=== PATIENT | male | born 1985 | race American Indian/Alaskan Native ===

== ENCOUNTER 2018-03-14 10:48 | Emergency (ER) | payer BC ==
[2018-03-14] MEDS ORDERED: Sodium Chloride 0.9% 1,000 ML IV ONE (10:52)
[2018-03-14] MEDS ORDERED: Ondansetron 4 MG/2 ML SDV IVPUSH ONE (10:52)
--- NOTE | 2018-03-14 10:54 | EDM.PDOC ---
ED HPI GENERAL MEDICAL PROBLEM - General Chief Complaint: Chest Pain Stated Complaint: SOB/TINGLING LT ARM/CHEST PAIN Time Seen by Provider: 03/14/18 10:52 Source of Information: Reports: Patient History Limitations: Reports: No Limitations - History of Present Illness INITIAL COMMENTS - FREE TEXT/NARRATIVE: HISTORY AND PHYSICAL: History of present illness: Patient is a 32-year-old male who presents to the emergency room today with complaints of left sided facial numbness and tingling that goes down his left arm, which started approximately an hour [employer]. He states yesterday he had been drinking quite heavily, "more than normal". He denies any recent falls, traumas or injury. Denies any fever, chills, chest pain or shortness of breath. Denies any abdominal pain, nausea, vomiting, diarrhea. Medical history of anxiety. Review of systems: As per history of present illness and below otherwise all systems reviewed and negative. Past medical history: As per history of present illness and as reviewed below otherwise noncontributory. Surgical history: As per history of present illness and as reviewed below otherwise noncontributory. Social history: No reported history of drug or alcohol abuse. Family history: As per history of present illness and as reviewed below otherwise noncontributory. Physical exam: General: Well-nourished 32-year-old male. Alert and oriented. Nontoxic appearing and in no acute distress. HEENT: Atraumatic, normocephalic, pupils equal and reactive bilaterally, negative for conjunctival pallor or scleral icterus, mucous membranes moist, throat clear, neck supple, nontender, trachea midline. No drooling or trismus noted. No meningeal signs Lungs: Clear to auscultation, breath sounds equal bilaterally, chest nontender. Heart: S1S2, regular rate and rhythm without overt murmur Abdomen: Soft, nondistended, nontender. Negative for masses or hepatosplenomegaly. Negative for costovertebral tenderness. Pelvis: Stable nontender. Genitourinary: Deferred. Rectal: Deferred. Skin: Intact, warm, dry. No lesions or rashes noted. Extremities: Atraumatic, negative for cords or calf pain. Neurovascular unremarkable. Neuro: Awake, alert, oriented. Cranial nerves II through XII unremarkable. Cerebellum unremarkable. Motor and sensory unremarkable throughout. Exam nonfocal. Notes: Normal physical exam, normal neuro assessment. Vital signs are stable and have been reviewed by me. Chest x-ray shows no evidence of pneumonia or infiltrate. Negative Head CT. Labs are unremarkable. This information was shared with the patient. Supportive care measures and need for further follow up were reviewed and discussed. Patient voices understanding and denies any further questions. Diagnostics: CBC, CMP, UA, DRGU, EKG, Chest xray Therapeutics: IV fluids, Zofran, Solu-Medrol Prescription: None Impression: Parasethesia Plan: 1. Today's labs, EKG, chest x-ray and head CT are within normal limits. 2. Please limit your alcohol use. 3. Follow-up with your primary care provider in the next 1-2 days. Return to the ED as needed and as discussed. Definitive disposition and diagnosis as appropriate pending reevaluation and review of above. Onset: Today Duration: Hour(s): Location: Reports: Upper Extremity, Left Left Arm Pain Score (Numeric/FACES): 7 - Related Data Allergies Allergy/AdvReac Type Severity Reaction Status Date / Time Penicillins Allergy Cannot Verified 03/14/18 10:59 Remember Home Meds: Home Meds Sertraline HCl 100 mg PO DAILY 03/14/18 [History] Past Medical History - Past Health History Medical/Surgical History: Denies Medical/Surgical History ED ROS GENERAL - Review of Systems Review Of Systems: ROS reveals no pertinent complaints other than HPI. ED EXAM, GENERAL - Physical Exam Exam: See Below (See dictation) Course - Vital Signs Last Recorded V/S: Last Vital Signs Temp 98.1 F 03/14/18 10:51 Pulse 70 03/14/18 11:36 Resp 18 03/14/18 11:36 BP 123/68 03/14/18 11:36 Pulse Ox 98 03/14/18 11:36 - Orders/Labs/Meds Orders: Active Orders 24 hr Category Date Time Status EKG Documentation Completion [RC] STAT Care 03/14/18 10:52 Active Chest 1V Frontal [CR] Stat Exams 03/14/18 10:52 Taken Head wo Cont [CT] Stat Exams 03/14/18 11:30 Taken DRUG SCREEN, URINE [URCHEM] Stat Lab 03/14/18 11:29 Ordered UA W/MICROSCOPIC [URIN] Stat Lab 03/14/18 11:29 Ordered Labs: Laboratory Tests 03/14/18 03/14/18 03/14/18 Range/Units 10:50 10:50 11:29 WBC 9.55 (4.0-11.0) K/uL RBC 4.78 (4.50-5.90) M/uL Hgb 14.8 (13.0-17.0) g/dL Hct 42.2 (38.0-50.0) % MCV 88.3 (80.0-98.0) fL MCH 31.0 (27.0-32.0) pg MCHC 35.1 (31.0-37.0) g/dL RDW Std Deviation 45.5 (28.0-62.0) fl RDW Coeff of Paul 14 (11.0-15.0) % Plt Count 245 (150-400) K/uL MPV 10.00 (7.40-12.00) fL Neut % (Auto) 62.3 (48.0-80.0) % Lymph % (Auto) 25.2 (16.0-40.0) % [place] % (Auto) 10.2 (0.0-15.0) % Eos % (Auto) 1.8 (0.0-7.0) % Baso % (Auto) 0.5 (0.0-1.5) % Neut # (Auto) 6.0 H (1.4-5.7) K/uL Lymph # (Auto) 2.4 (0.6-2.4) K/uL [place] # (Auto) 1.0 H (0.0-0.8) K/uL Eos # (Auto) 0.2 (0.0-0.7) K/uL Baso # (Auto) 0.1 (0.0-0.1) K/uL Nucleated RBC % 0.0 /100WBC Nucleated RBCs # 0 K/uL Sodium 142 (136-148) mmol/L Potassium 3.9 (3.5-5.1) mmol/L Chloride 104 (98-107) mmol/L Carbon Dioxide 27.8 (21.0-32.0) mmol/L BUN 12 (7.0-18.0) mg/dL Creatinine 1.0 (0.8-1.3) mg/dL Est Cr Clr Drug Dosing 105.07 mL/min Estimated GFR (MDRD) > 60.0 ml/min Glucose 111 H (74-106) mg/dL Calcium 8.9 (8.5-10.1) mg/dL Total Bilirubin 0.4 (0.2-1.0) mg/dL AST 22 (15-37) IU/L ALT 35 (14-63) IU/L Alkaline Phosphatase 48 (46-116) U/L Total Protein 8.2 (6.4-8.2) g/dL Albumin 4.8 (3.4-5.0) g/dL Globulin 3.4 (2.0-3.5) g/dL Albumin/Globulin Ratio 1.4 (1.3-2.8) Urine Color YELLOW Urine Appearance CLEAR Urine pH 5.5 (5.0-8.0) Ur Specific [place] >= 1.030 (1.001-1.035) Urine Protein TRACE (NEGATIVE) mg/dL Urine Glucose (UA) NEGATIVE (NEGATIVE) mg/dL Urine Ketones NEGATIVE (NEGATIVE) mg/dL Urine Occult Blood NEGATIVE (NEGATIVE) Urine Nitrite NEGATIVE (NEGATIVE) Urine Bilirubin NEGATIVE (NEGATIVE) Urine Urobilinogen 0.2 (<2.0) EU/dL Ur Leukocyte Esterase NEGATIVE (NEGATIVE) Urine RBC 0-1 (0-2/HPF) Urine WBC 0-1 (0-5/HPF) Ur Epithelial Cells RARE (NONE-FEW) Urine Bacteria RARE (NEGATIVE) Urine Opiates Screen (NEGATIVE) Ur Oxycodone Screen (NEGATIVE) Urine Methadone Screen (NEGATIVE) Ur Barbiturates Screen (NEGATIVE) Ur Phencyclidine Scrn (NEGATIVE) Ur Amphetamine Screen (NEGATIVE) U Methamphetamines Scrn (NEGATIVE) U Benzodiazepines Scrn (NEGATIVE) U Cocaine Metab Screen (NEGATIVE) U Marijuana (THC) Screen (NEGATIVE) 03/14/18 Range/Units 11:29 WBC (4.0-11.0) K/uL RBC (4.50-5.90) M/uL Hgb (13.0-17.0) g/dL Hct (38.0-50.0) % MCV (80.0-98.0) fL MCH (27.0-32.0) pg MCHC (31.0-37.0) g/dL RDW Std Deviation (28.0-62.0) fl RDW Coeff of Paul (11.0-15.0) % Plt Count (150-400) K/uL MPV (7.40-12.00) fL Neut % (Auto) (48.0-80.0) % Lymph % (Auto) (16.0-40.0) % [place] % (Auto) (0.0-15.0) % Eos % (Auto) (0.0-7.0) % Baso % (Auto) (0.0-1.5) % Neut # (Auto) (1.4-5.7) K/uL Lymph # (Auto) (0.6-2.4) K/uL [place] # (Auto) (0.0-0.8) K/uL Eos # (Auto) (0.0-0.7) K/uL Baso # (Auto) (0.0-0.1) K/uL Nucleated RBC % /100WBC Nucleated RBCs # K/uL Sodium (136-148) mmol/L Potassium (3.5-5.1) mmol/L Chloride (98-107) mmol/L Carbon Dioxide (21.0-32.0) mmol/L BUN (7.0-18.0) mg/dL Creatinine (0.8-1.3) mg/dL Est Cr Clr Drug Dosing mL/min Estimated GFR (MDRD) ml/min Glucose (74-106) mg/dL Calcium (8.5-10.1) mg/dL Total Bilirubin (0.2-1.0) mg/dL AST (15-37) IU/L ALT (14-63) IU/L Alkaline Phosphatase (46-116) U/L Total Protein (6.4-8.2) g/dL Albumin (3.4-5.0) g/dL Globulin (2.0-3.5) g/dL Albumin/Globulin Ratio (1.3-2.8) Urine Color Urine Appearance Urine pH (5.0-8.0) Ur Specific [place] (1.001-1.035) Urine Protein (NEGATIVE) mg/dL Urine Glucose (UA) (NEGATIVE) mg/dL Urine Ketones (NEGATIVE) mg/dL Urine Occult Blood (NEGATIVE) Urine Nitrite (NEGATIVE) Urine Bilirubin (NEGATIVE) Urine Urobilinogen (<2.0) EU/dL Ur Leukocyte Esterase (NEGATIVE) Urine RBC (0-2/HPF) Urine WBC (0-5/HPF) Ur Epithelial Cells (NONE-FEW) Urine Bacteria (NEGATIVE) Urine Opiates Screen NEGATIVE (NEGATIVE) Ur Oxycodone Screen NEGATIVE (NEGATIVE) Urine Methadone Screen NEGATIVE (NEGATIVE) Ur Barbiturates Screen NEGATIVE (NEGATIVE) Ur Phencyclidine Scrn NEGATIVE (NEGATIVE) Ur Amphetamine Screen NEGATIVE (NEGATIVE) U Methamphetamines Scrn NEGATIVE (NEGATIVE) U Benzodiazepines Scrn NEGATIVE (NEGATIVE) U Cocaine Metab Screen NEGATIVE (NEGATIVE) U Marijuana (THC) Screen NEGATIVE (NEGATIVE) Meds: Medications Discontinued Medications Generic Name Dose Route Start Last Admin Trade Name Freq PRN Reason Stop Dose Admin Sodium Chloride 1,000 mls @ 999 mls/hr 03/14/18 10:52 03/14/18 11:11 Normal Saline IV 03/14/18 11:52 999 mls/hr STAT ONE Administration Methylprednisolone Sodium Succinate 125 mg 03/14/18 11:31 03/14/18 11:41 Solu-Medrol IVPUSH 03/14/18 11:32 125 mg ONETIME ONE Administration Ondansetron HCl 4 mg 03/14/18 10:52 03/14/18 11:11 Zofran IVPUSH 03/14/18 10:53 4 mg ONETIME ONE Administration Departure - Departure Time of Disposition: 12:12 Disposition: Home, Self-Care 01 Clinical Impression: Paresthesia of arm Instructions: Paresthesia, [id number] Referrals: PCP,Not In Area [Primary Care Provider] - Forms: ED Department Discharge Additional Instructions: The following information is given to patients seen in the emergency department who are being discharged to home. This information is to outline your options for follow-up care. We provide all patients seen in our emergency department with a follow-up referral. The need for follow-up, as well as the timing and circumstances, are variable depending upon the specifics of your emergency department visit. If you don't have a primary care physician on staff, we will provide you with a referral. We always advise you to contact your personal physician following an emergency department visit to inform them of the circumstance of the visit and for follow-up with them and/or the need for any referrals to a consulting specialist. The emergency department will also refer you to a specialist when appropriate. This referral assures that you have the opportunity for follow-up care with a specialist. All of these measure are taken in an effort to provide you with optimal care, which includes your follow-up. Under all circumstances we always encourage you to contact your private physician who remains a resource for coordinating your care. When calling for follow-up care, please make the office aware that this follow-up is from your recent emergency room visit. If for any reason you are refused follow-up, please contact the [facility] Emergency Department at and asked to speak to the emergency department charge nurse. [facility] [address] [place] [id number] 1. Today's labs, EKG, chest x-ray and head CT are within normal limits. 2. Please limit your alcohol use. 3. Follow-up with your primary care provider in the next 1-2 days. Return to the ED as needed and as discussed. - My Orders Last 24 Hours: My Active Orders 03/14/18 10:52 EKG Documentation Completion [RC] STAT Chest 1V Frontal [CR] Stat 03/14/18 11:29 DRUG SCREEN, URINE [URCHEM] Stat UA W/MICROSCOPIC [URIN] Stat 03/14/18 11:30 Head wo Cont [CT] Stat - Assessment/Plan Last 24 Hours: My Active Orders 03/14/18 10:52 EKG Documentation Completion [RC] STAT Chest 1V Frontal [CR] Stat 03/14/18 11:29 DRUG SCREEN, URINE [URCHEM] Stat UA W/MICROSCOPIC [URIN] Stat 03/14/18 11:30 Head wo Cont [CT] Stat
[2018-03-14 11:22] LABS: CHLORIDE,CL 104 mmol/L (98-107); SODIUM,NA 142 mmol/L (136-148)
[2018-03-14] MEDS ORDERED: methylPREDNISolone Sodium Succinate 125 MG/2 ML SDV IVPUSH ONE (11:31)
--- NOTE | 2018-03-15 09:34 | CR ---
EXAM DATE: 03/14/18 PATIENT'S AGE: 32 Patient: CORY MATHEWS Facility: [place], [place] Site . Site : 1985 Study: XRay Chest [id number]/[id number] 11:18:14 AM Ordering Physician: Doctor Frazier Final Report: INDICATION: Chest and left arm pain. TECHNIQUE: AP portable upright chest. FINDINGS: Clear lungs. Normal heart size and pulmonary vascularity. Normal included skeletal thorax. IMPRESSION: Negative portable chest. Dictated by Magno Bains MD @ Mar 14 2018 11:21AM (Electronic Signature) Report Signed by Proxy. JESSENIA
--- NOTE | 2018-03-15 09:34 | CT ---
EXAM DATE: 03/14/18 PATIENT'S AGE: 32 Patient: CORY MATHEWS Facility: [place], [place] Site . Site : 1985 Study: CT Head [id number] 12:03:16 PM Ordering Physician: Doctor Frazier Final Report: INDICATION: Dizziness. Left arm and facial tingling. TECHNIQUE: Noncontrast head CT. FINDINGS: There is no evidence for acute intracranial hemorrhage or hydrocephalus. There is no evidence for mass effect or shift of midline structures. No evidence for ischemic changes or infarction. The calvarium and skull base are normal. The included paranasal sinuses and mastoid air cells are clear. IMPRESSION: Negative noncontrast head CT. Please note that all CT scans at this facility use dose modulation, iterative reconstruction, and/or weight-based dosing when appropriate to reduce radiation dose to as low as reasonably achievable. Dictated by Magno Bains MD @ Mar 14 2018 12:08PM (Electronic Signature) Report Signed by Proxy. JESSENIA
== END 2018-03-14 12:23 | disposition home or self-care (01) ==
LOC: MW.ED 10:48
DX: R20.2 Paresthesia of skin (principal); Z88.0 Allergy status to penicillin
CPT/HCPCS: 70450; 71045; 80053; 80305; 81001; 85025; 93005; 96361; 96374; 96375; 99285; J2405; J2930; J7040; 99284

== ENCOUNTER 2019-10-31 06:44 | Emergency (ER) | payer BC, OTHER ==
--- NOTE | 2019-10-31 07:32 | EDM.PDOCBH ---
ED HPI GENERAL MEDICAL PROBLEM - General Chief Complaint: Behavioral/Psych Stated Complaint: ANXIETY Time Seen by Provider: 10/31/19 07:17 Source of Information: Reports: Patient, RN Notes Reviewed History Limitations: Reports: No Limitations - History of Present Illness INITIAL COMMENTS - FREE TEXT/NARRATIVE: This 33-year-old male presents to the emergency room for anxiety. Patient only concern if his vitals were stable. Patient did not want to talk to the physician about any other history and stated if his vitals were fine he would leave. Patient then left the emergency room without any exam or any other discussion. no pain Pain Score (Numeric/FACES): 0 - Related Data Allergies Allergy/AdvReac Type Severity Reaction Status Date / Time Penicillins Allergy Cannot Verified 10/31/19 06:58 Remember Home Meds: Home Meds Sertraline HCl 100 mg PO DAILY 03/14/18 [History] Past Medical History - Past Health History Medical/Surgical History: Denies Medical/Surgical History Psychiatric History: Reports: Anxiety, Depression, Mood Swings - Infectious Disease History Infectious Disease History: Reports: Chicken Pox - Past Surgical History Musculoskeletal Surgical History: Reports: Other (See Below) Other Musculoskeletal Surgeries/Procedures:: surgery on broken wrist Social & Family History - Family History Family Medical History: Noncontributory - Tobacco Use Smoking Status *Q: Current Every Day Smoker Years of Tobacco use: 15 Packs/Tins Daily: 1 - Caffeine Use Caffeine Use: Reports: Coffee, Energy Drinks, Soda - Recreational Drug Use Recreational Drug Use: Yes Recreational Drug Type: Reports: Cocaine, Methamphetamine ED ROS GENERAL - Review of Systems Review Of Systems: Unable To Obtain Reason Not Obtained: The patient refused to cooperate with the review of systems ED EXAM, BEHAVIORAL HEALTH - Physical Exam Exam: Not Obtained Reason Not Obtained: Patient refused to cooperate and left the emergency room COURSE, BEHAVIORAL HEALTH COMP - Course Vital Signs: Last Vital Signs Temp 96.8 F L 10/31/19 06:59 Pulse 85 10/31/19 06:59 Resp 18 10/31/19 06:59 BP 144/88 H 10/31/19 06:59 Pulse Ox 96 10/31/19 06:59 Departure - Departure Time of Disposition: 07:30 Disposition: Eloped 07 Condition: Undetermined Clinical Impression: Anxiety - Discharge Information Referrals: Jacobo Hernandez [Primary Care Provider] - Sepsis Event Note - Evaluation Sepsis Screening Result: No Definite Risk - Focused Exam Vital Signs: Vital Signs Temp Pulse Resp BP Pulse Ox 10/31/19 06:59 96.8 F L 85 18 144/88 H 96 Date Exam was Performed: 10/31/19 Time Exam was Performed: 07:26
== END 2019-10-31 07:25 | disposition left against medical advice (07) ==
LOC: MW.ED 06:44
DX: Z53.21 Procedure and treatment not carried out due to patient leaving prior to being seen by health care provider (principal)

== ENCOUNTER 2021-12-25 10:57 | Day surgery (SDC) | payer BC, OTHER ==
[~2021-12-25 10:57] MED LIST: Lactated Ringers 1,000 ML IV SCH
[2021-12-25] MEDS ORDERED: Propofol 200 MG/20 ML SDV ONE ×2 (13:35→14:08)
[2021-12-25] MEDS ORDERED: Lidocaine 2% 5 ML SDV ONE (13:35)
== END 2021-12-25 15:10 | disposition home or self-care (01) ==
LOC: MW.SDS 10:57
PROVIDERS: ATTEND Surgery
DX: K52.89 Other specified noninfective gastroenteritis and colitis (principal); K62.89 Other specified diseases of anus and rectum; K64.8 Other hemorrhoids; K20.90 Esophagitis, unspecified without bleeding; F41.9 Anxiety disorder, unspecified; F32.A Depression, unspecified; F17.290 Nicotine dependence, other tobacco product, uncomplicated; Z88.0 Allergy status to penicillin; Z79.899 Other long term (current) drug therapy
CPT/HCPCS: 43239; 45380; J2704; J7120; 00813